=== PATIENT | female | born 1960 | race Caucasian/White ===

== ENCOUNTER 2020-05-17 21:36 | Inpatient (IN) ==
[2020-05-17 23:15] LABS: ABS Eosinophils 0.1 10^3/ul (0-0.6); ABS Lymphocytes 3.6 10^3/ul (1.0-4.8); ABS Monocytes 0.4 10^3/ul (0-0.8); ABS Neutrophils 3.1 10^3/ul (1.5-7.7); Eosinophil % 0.9 %; Hematocrit 42 % (35-47); Hemoglobin 14.5 g/dL (12.0-16.0); Lymphocyte % 50.2 %; Mean Corpuscular HGB Conc 34 g/dL (31-36); Mean Corpuscular Hemoglobin 31 pg (27-31); Mean Corpuscular Volume 92 fL (80-97); Mean Platelet Volume 7.3 fL (7.4-10.4); Nucleated Red Blood Cells % 0.1; Platelet Count 218 10^3/uL (150-450); Red Blood Count 4.61 10^6 /uL (3.70-4.87); Red Cell Distribution Width 14 % (10-15); White Blood Count 7.2 10^3/uL (3.5-10.8)
[2020-05-17 23:34] LABS: ALT 10 U/L (7-52); AST 22 U/L (13-39); Albumin 4.3 g/dL (3.2-5.2); Albumin/Globulin Ratio 1.2 (1-3); Alkaline Phosphatase 77 U/L (34-104); Anion Gap 10 mmol/L (2-11); Blood Urea Nitrogen 12 mg/dL (6-24); CO2 Carbon Dioxide 28 mmol/L (22-32); Calcium 8.8 mg/dL (8.6-10.3); Chloride 104 mmol/L (101-111); EGFR African American 123.4 (>60); Globulin 3.6 g/dL (2-4); Glucose 109 mg/dL (70-100); Potassium 3.4 mmol/L (3.5-5.0); Sodium 142 mmol/L (135-145); Total Protein 7.9 g/dL (6.4-8.9)
[2020-05-17 23:57] LABS: Acetaminophen < 15 mcg/mL; Alcohol, S 245 mg/dL (<10); Salicylate < 2.50 mg/dL (<30)
[2020-05-18 00:13] LABS: TSH Ultra Thyroid Stim Horm 0.64 mcIU/mL (0.34-5.60)
[2020-05-18] MEDS ORDERED: Nicotine PATCH 21 MG/24 HR PATCH TRANSDERM ONE (00:26)
[2020-05-18 01:22] LABS: Urine Appearance Cloudy; Urine Bilirubin Negative (Negative); Urine Blood 1+ (Negative); Urine Color Yellow; Urine Glucose Negative (Negative); Urine Ketones Negative (Negative); Urine Nitrite Negative (Negative); Urine Protein 1+(30 mg/dL) (Negative); Urine Specific Gravity 1.013 (1.010-1.030); Urine Urobilinogen Negative (Negative)
[2020-05-18 01:40] LABS: Urine Benzodiazepine Screen None Detected (None Detect); Urine Cannabinoids Screen None Detected (None Detect); Urine Opiates Screen None Detected (None Detect)
[2020-05-18 02:10] LABS: Urine Bacteria 1+ (Absent); Urine Red Blood Cell 1+(3-5/hpf) (Absent); Urine Squamous Epithelial Cell Present (Absent); Urine White Blood Cell Trace(0-5/hpf) (Absent)
[2020-05-18] MEDS ORDERED: Al Hydrox/Mg Hydrox/Simet LIQ 30 ML UDC PO PRN (09:16)
[2020-05-18] MEDS: Thiamine TAB* 100 MG TAB DAILY (@ T+1) PO SCH (10:00)
[2020-05-18] MEDS: LORazepam PO 0-6 for WAM protocol PO SCH ×2 (10:00→12:20)
[2020-05-18] MEDS: Folic Acid TAB* 1 MG DAILY PO SCH (10:00)
[2020-05-18] MEDS: Vitamin THERAPEUTIC TAB PO SCH (10:00)
[2020-05-19] MEDS: LORazepam PO 0-6 for WAM protocol PO SCH (03:02)
[2020-05-19] MEDS: Folic Acid TAB* 1 MG DAILY PO SCH (09:48)
[2020-05-19] MEDS: Thiamine TAB* 100 MG TAB DAILY (@ T+1) PO SCH (09:50)
[2020-05-19] MEDS: Vitamin THERAPEUTIC TAB PO SCH (09:51)
[2020-05-19 19:12] LABS: BUN/Creatinine Ratio 36.3 (8-20); Calcium 9.5 mg/dL (8.6-10.3); EGFR African American 88.5 (>60); EGFR Non-African American 73.2 (>60); Potassium 3.6 mmol/L (3.5-5.0)
[2020-05-19] MEDS ORDERED: Nicotine GUM 2MG FRUIT FLAVOR PO PRN (23:00)
[2020-05-20] MEDS: Folic Acid TAB* 1 MG DAILY PO SCH (08:41)
[2020-05-20] MEDS: Thiamine TAB* 100 MG TAB DAILY (@ T+1) PO SCH (08:42)
[2020-05-20] MEDS: Vitamin THERAPEUTIC TAB PO SCH (08:42)
[2020-05-20] MEDS: Nicotine PATCH 21 MG/24 HR PATCH TRANSDERM SCH (12:22)
[2020-05-21] MEDS: Nicotine PATCH 21 MG/24 HR PATCH TRANSDERM SCH (07:28)
[2020-05-21] MEDS: Folic Acid TAB* 1 MG DAILY PO SCH (08:40)
[2020-05-21] MEDS: Vitamin THERAPEUTIC TAB PO SCH (08:41)
[2020-05-21] MEDS: Thiamine TAB* 100 MG TAB DAILY (@ T+1) PO SCH (08:41)
[2020-05-21 14:57] VITALS: BP 155/91
== END 2020-05-21 16:00 | disposition home or self-care (01) | DRG 753 ==
LOC: ED 21:36 → BSU 05-18 08:27
PROVIDERS: ADMIT Psychiatry & Neurology Addiction Psychiatry; ATTEND Psychiatry & Neurology Psychiatry

== ENCOUNTER 2020-05-21 16:58 | Inpatient (IN) ==
[2020-05-21 18:07] LABS: Urine Appearance Clear; Urine Bilirubin Negative (Negative); Urine Blood Negative (Negative); Urine Color Straw; Urine Glucose Negative (Negative); Urine Ketones Negative (Negative); Urine Nitrite Negative (Negative); Urine Protein Negative (Negative); Urine Specific Gravity 1.008 (1.010-1.030); Urine Urobilinogen Negative (Negative)
[2020-05-21 20:08] LABS: Urine Benzodiazepine Screen None Detected (None Detect); Urine Cannabinoids Screen None Detected (None Detect); Urine Opiates Screen None Detected (None Detect)
[2020-05-21] MEDS ORDERED: Al Hydrox/Mg Hydrox/Simet LIQ 30 ML UDC PO PRN (21:07)
[2020-05-21] MEDS: Nicotine GUM 2MG FRUIT FLAVOR PO PRN (22:37)
[2020-05-22] MEDS: Vitamin THERAPEUTIC TAB PO SCH (08:51)
[2020-05-22] MEDS: Nicotine PATCH 14 MG/24 HR PATCH TRANSDERM SCH (09:00)
[2020-05-22] MEDS ORDERED: Influenza VAC *QUAD* 2020-21* 0.5 ML SYRINGE IM ONE (16:30)
[2020-05-22] MEDS: Nicotine GUM 2MG FRUIT FLAVOR PO PRN (20:21)
[2020-05-23] MEDS: Vitamin THERAPEUTIC TAB PO SCH (08:22)
[2020-05-23] MEDS: Nicotine PATCH 14 MG/24 HR PATCH TRANSDERM SCH (08:23)
[2020-05-23] MEDS: Nicotine GUM 2MG FRUIT FLAVOR PO PRN ×2 (09:37→12:55)
[2020-05-24] MEDS: Vitamin THERAPEUTIC TAB PO SCH (07:52)
[2020-05-24] MEDS: Nicotine PATCH 14 MG/24 HR PATCH TRANSDERM SCH (07:52)
[2020-05-24] MEDS: Nicotine GUM 2MG FRUIT FLAVOR PO PRN ×2 (11:37→19:52)
[2020-05-25] MEDS: Nicotine PATCH 14 MG/24 HR PATCH TRANSDERM SCH (08:52)
[2020-05-25] MEDS: Vitamin THERAPEUTIC TAB PO SCH (08:54)
[2020-05-25] MEDS: Nicotine GUM 2MG FRUIT FLAVOR PO PRN ×2 (17:51→22:47)
[2020-05-26 08:24] VITALS: BP 124/83
[2020-05-26] MEDS: Nicotine PATCH 14 MG/24 HR PATCH TRANSDERM SCH (08:24)
[2020-05-26] MEDS: Vitamin THERAPEUTIC TAB PO SCH (08:27)
[2020-05-26] MEDS: Nicotine GUM 2MG FRUIT FLAVOR PO PRN (10:52)
== END 2020-05-26 11:20 | disposition home health service (06) ==
LOC: ED 16:58 → BSU 20:37
PROVIDERS: ADMIT Psychiatry & Neurology Psychiatry; ATTEND Psychiatry & Neurology Psychiatry

== ENCOUNTER 2020-06-02 12:02 | Inpatient (IN) ==
[2020-06-02] MEDS ORDERED: NS 0.9% 1000 ml BAG 1,000 ML IV ONE ×2 (12:39→14:01)
[2020-06-02 12:47] LABS: ABS Eosinophils 0.2 10^3/ul (0-0.6); ABS Lymphocytes 1.5 10^3/ul (1.0-4.8); ABS Monocytes 0.7 10^3/ul (0-0.8); ABS Neutrophils 11.1 10^3/ul (1.5-7.7); Eosinophil % 1.4 %; Hematocrit 37 % (35-47); Hemoglobin 12.4 g/dL (12.0-16.0); Lymphocyte % 10.8 %; Mean Corpuscular HGB Conc 33 g/dL (31-36); Mean Corpuscular Hemoglobin 31 pg (27-31); Mean Corpuscular Volume 94 fL (80-97); Mean Platelet Volume 7.6 fL (7.4-10.4); Platelet Count 247 10^3/uL (150-450); Red Blood Count 3.99 10^6 /uL (3.70-4.87); Red Cell Distribution Width 14 % (10-15); White Blood Count 13.5 10^3/uL (3.5-10.8)
[2020-06-02 13:06] LABS: Albumin 4.2 g/dL (3.2-5.2); Albumin/Globulin Ratio 1.3 (1-3); BUN/Creatinine Ratio 18.6 (8-20); Calcium 9.9 mg/dL (8.6-10.3); EGFR African American 39.5 (>60); EGFR Non-African American 32.6 (>60); Globulin 3.2 g/dL (2-4); Magnesium 2.1 mg/dL (1.9-2.7); Potassium 3.2 mmol/L (3.5-5.0); Total Bilirubin 0.5 mg/dL (0.2-1.0); Total Protein 7.4 g/dL (6.4-8.9)
[2020-06-02 13:30] LABS: Urine Appearance Cloudy; Urine Bilirubin Negative (Negative); Urine Blood Negative (Negative); Urine Color Amber; Urine Glucose Negative (Negative); Urine Ketones Trace (Negative); Urine Nitrite Positive (Negative); Urine Protein 1+(30 mg/dL) (Negative); Urine Specific Gravity 1.018 (1.010-1.030); Urine Urobilinogen Negative (Negative)
[2020-06-02 13:33] LABS: Urine Bacteria 3+ (Absent); Urine Red Blood Cell Trace(0-2/hpf) (Absent); Urine Squamous Epithelial Cell Present (Absent); Urine White Blood Cell 2+(11-20/hpf) (Absent)
[2020-06-02] MEDS ORDERED: cefTRIAXone 1 gm/50 mL NS BAG 1 GM/50 ML BAG IV ONE (14:01)
[2020-06-02 14:07] LABS: TSH Ultra Thyroid Stim Horm 1.3 mcIU/mL (0.34-5.60)
[2020-06-02 17:09] LABS: Lithium 1.45 mmol/L (0.6-1.2)
[2020-06-02] MEDS ORDERED: Potassium Chlor 20 meq TAB.ER PO ONE (17:14)
[2020-06-02] MEDS ORDERED: NS 0.9% 1000 ml BAG 1,000 ML IV SCH (17:15)
[2020-06-02] MEDS ORDERED: Lactated Ringers 1000 ml BAG 1,000 ML IV ONE (20:14)
[2020-06-02] MEDS: Heparin 5000 UNITS/ML 1 mL VIAL SUBCUT SCH (22:49)
[2020-06-03 05:08] LABS: ABS Basophils 0.1 10^3/ul (0-0.2); ABS Eosinophils 0.1 10^3/ul (0-0.6); ABS Neutrophils 10.5 10^3/ul (1.5-7.7); Hematocrit 34 % (35-47); Hemoglobin 11.5 g/dL (12.0-16.0); Lymphocyte % 14.2 %; Mean Corpuscular HGB Conc 33 g/dL (31-36); Mean Corpuscular Hemoglobin 31 pg (27-31); Mean Corpuscular Volume 92 fL (80-97); Mean Platelet Volume 7.6 fL (7.4-10.4); Platelet Count 220 10^3/uL (150-450); Red Blood Count 3.74 10^6 /uL (3.70-4.87); Red Cell Distribution Width 14 % (10-15); White Blood Count 13.7 10^3/uL (3.5-10.8)
[2020-06-03] MEDS: Heparin 5000 UNITS/ML 1 mL VIAL SUBCUT SCH ×3 (05:09→23:26)
[2020-06-03 05:32] LABS: BUN/Creatinine Ratio 17.2 (8-20); Calcium 8.8 mg/dL (8.6-10.3); EGFR African American 114.5 (>60); EGFR Non-African American 94.7 (>60); Potassium 4.3 mmol/L (3.5-5.0)
[2020-06-03] MEDS: Multivitamins/Minerals TAB PO SCH (08:29)
[2020-06-03] MEDS: cefTRIAXone 1 gm/50 mL NS BAG 1 GM/50 ML BAG IVPB SCH (13:43)
[2020-06-04 05:45] LABS: ABS Basophils 0.1 10^3/ul (0-0.2); ABS Eosinophils 0.2 10^3/ul (0-0.6); ABS Lymphocytes 2.4 10^3/ul (1.0-4.8); ABS Monocytes 1.3 10^3/ul (0-0.8); ABS Neutrophils 10.4 10^3/ul (1.5-7.7); Eosinophil % 1.6 %; Hematocrit 35 % (35-47); Hemoglobin 11.7 g/dL (12.0-16.0); Lymphocyte % 16.7 %; Mean Corpuscular HGB Conc 34 g/dL (31-36); Mean Corpuscular Hemoglobin 31 pg (27-31); Mean Corpuscular Volume 92 fL (80-97); Mean Platelet Volume 7.9 fL (7.4-10.4); Platelet Count 231 10^3/uL (150-450); Red Blood Count 3.77 10^6 /uL (3.70-4.87); Red Cell Distribution Width 14 % (10-15); White Blood Count 14.3 10^3/uL (3.5-10.8)
[2020-06-04 06:04] LABS: BUN/Creatinine Ratio 14.1 (8-20); Calcium 9.3 mg/dL (8.6-10.3); EGFR African American 101.6 (>60); Potassium 4.3 mmol/L (3.5-5.0)
[2020-06-04] MEDS: Heparin 5000 UNITS/ML 1 mL VIAL SUBCUT SCH ×3 (07:52→23:05)
[2020-06-04] MEDS: Multivitamins/Minerals TAB PO SCH (08:43)
[2020-06-04 09:35] LABS: C Reactive Protein 182.55 mg/L (<8.01)
[2020-06-04] MEDS ORDERED: Senna TAB 8.6 mg TAB PO PRN (10:03)
[2020-06-04] MEDS: Magnesium Hydroxide LIQ 30 ML UDC PO SCH ×2 (10:17→23:02)
[2020-06-04] MEDS: Polyethylene Glycol 3350 17 GM PACKET PO SCH (10:18)
[2020-06-04 11:34] LABS: Lithium 0.65 mmol/L (0.6-1.2)
[2020-06-04] MEDS: cefTRIAXone 1 gm/50 mL NS BAG 1 GM/50 ML BAG IVPB SCH (13:56)
[2020-06-05 06:25] LABS: ABS Basophils 0.1 10^3/ul (0-0.2); ABS Eosinophils 0.4 10^3/ul (0-0.6); ABS Lymphocytes 2.4 10^3/ul (1.0-4.8); ABS Neutrophils 6.5 10^3/ul (1.5-7.7); Eosinophil % 3.6 %; Hematocrit 36 % (35-47); Hemoglobin 12.2 g/dL (12.0-16.0); Mean Corpuscular HGB Conc 34 g/dL (31-36); Mean Corpuscular Hemoglobin 31 pg (27-31); Mean Corpuscular Volume 92 fL (80-97); Mean Platelet Volume 7.3 fL (7.4-10.4); Platelet Count 285 10^3/uL (150-450); Red Blood Count 3.93 10^6 /uL (3.70-4.87); Red Cell Distribution Width 14 % (10-15); White Blood Count 10.3 10^3/uL (3.5-10.8)
[2020-06-05] MEDS: Heparin 5000 UNITS/ML 1 mL VIAL SUBCUT SCH ×2 (06:29→14:07)
[2020-06-05 06:42] LABS: BUN/Creatinine Ratio 12.1 (8-20); C Reactive Protein 141.74 mg/L (<8.01); Calcium 9.1 mg/dL (8.6-10.3); EGFR African American 110.5 (>60); EGFR Non-African American 91.4 (>60)
[2020-06-05] MEDS: Magnesium Hydroxide LIQ 30 ML UDC PO SCH (08:35)
[2020-06-05] MEDS: Polyethylene Glycol 3350 17 GM PACKET PO SCH (08:35)
[2020-06-05] MEDS: Multivitamins/Minerals TAB PO SCH (08:44)
[2020-06-05] MEDS: cefTRIAXone 1 gm/50 mL NS BAG 1 GM/50 ML BAG IVPB SCH (13:59)
[2020-06-05] MEDS ORDERED: Magnesium CITRATE LIQ 300 ML BTL PO ONE (14:49)
[2020-06-05 16:53] VITALS: BP 117/64
== END 2020-06-05 18:15 | disposition home or self-care (01) | DRG 463 ==
LOC: ED 12:02 → SSU 15:12
PROVIDERS: ADMIT Internal Medicine; ATTEND Hospitalist